=== PATIENT | female | born 1995 | race Caucasian/White ===

== ENCOUNTER 2017-05-02 23:18 | Emergency (ER) | payer OTHER ==
[~2017-05-02] VITALS: Ht 167.6 cm; Wt 65.5 kg
[2017-05-02 23:25] VITALS: TEMP 36.6; Ht 167.6 cm; Wt 65.5 kg
[2017-05-02] MEDS ORDERED: SODIUM CHLORIDE 0.9% 1000ML 1,000 ML IV STA (23:56)
[2017-05-02] MEDS ORDERED: DiphenhydrAMINE HCL 50 MG/ML VIAL IV STA (23:56)
[2017-05-02] MEDS ORDERED: PROCHLORPERAZINE 5 MG/ML 2 ML VIAL IV STA (23:56)
[2017-05-02] MEDS ORDERED: KETOROLAC TROMETHAMINE 30 MG/ML VIAL IV STA (23:56)
[2017-05-03] MEDS ORDERED: NORGTAB36 PO (00:03)
--- NOTE | 2017-05-03 02:24 | EMERGENCY ROOM VISIT NOTE ---
History Report prepared by Shefali: Radha Cueva Under the Supervision of: Dr. Pavithra Verduzco D.O. First contact with patient: 23:38 Chief Complaint: HEADACHE Stated Complaint: MIGRAINE History of Present Illness The patient is a 21 year old female who presents to the Emergency Room with complaints of persistent migraine aura starting 8 hours ago. The patient has a history of migraines with aura. She is concerned because her aura today is different from her usual aura. Her aura today is also lasting longer than usual and she has not had any headache yet. When her aura begins, she usually takes Excedrin and sleeps for 3-4 hours. She has tried taking Excedrin today to no relief. She has some light sensitivity. She notes that she has increased stress and decreased sleep since starting school. Weather pressure changes can also affect her migraines. She started having some congestion yesterday with a productive cough. She denies any neck pain, back pain, nausea, numbness, or dizziness. She has been drinking fluids and eating normally. She denies any chance of . She has a strong family history of migraines her in father and siblings. She denies any head injury. Source of History: patient Onset: 8 hours ago Position: other (global) Quality: other (migraine aura) Timing: other (persistent) Associated Symptoms: No neck pain, No nausea, No back pain, No numbness Note: Pt reports light sensitivity. Pt denies dizziness. Review of Systems See HPI for pertinent positives & negatives. A total of 10 systems reviewed and were otherwise negative. Past Medical & Surgical Medical Problems: (1) Migraine Family History Migraine Social History Smoking Status: Never Smoker Occupation Status: [employer] student Current/Historical Medications Scheduled Norgestimate-Ethinyl Estradiol (Ortho Tri-Cyclen), 1 TAB PO DAILY Allergies Coded Allergies: Cefprozil (Verified Allergy, Unknown, hives, 05/02/17) Physical Exam Vital Signs Date Time Temp Pulse Resp B/P (MAP) Pulse Ox O2 Delivery O2 Flow Rate FiO2 05/03/17 02:59 80 18 93/65 98 05/03/17 00:36 76 18 131/64 99 Room Air 05/02/17 23:25 36.6 92 18 121/62 98 Room Air Physical Exam GENERAL: alert, well appearing, well nourished, no distress, non-toxic EYE EXAM: normal conjunctiva, PERRL and EOM's grossly intact. Funduscopic exam shows normal appearing vessels, unable to see entire optical disc. No evidence of papilledema. OROPHARYNX: no exudate, no erythema, lips, buccal mucosa, and tongue normal and mucous membranes are moist NECK: supple, no nuchal rigidity, no adenopathy, non-tender LUNGS: Clear to auscultation. Normal chest wall mechanics HEART: no murmurs, S1 normal and S2 normal ABDOMEN: abdomen soft, non-tender, normo-active bowel sounds, no masses, no rebound or guarding. BACK: Back is symmetrical on inspection and there is no deformity, no midline tenderness, no CVA tenderness. SKIN: no rashes and no bruising UPPER EXTREMITIES: upper extremities are grossly normal. LOWER EXTREMITIES: No pitting edema. NEURO EXAM: Normal sensorium, cranial nerves II-XII grossly intact, normal speech, no gross weakness of arms, no gross weakness of legs. Medical Decision & Procedures ER Provider Diagnostic Interpretation: Radiology results have been interpreted by the [facility] radiologist and reviewed by me. CT Head: No acute intracranial abnormality. Mild mucosal thickening in the left sphenoid sinus. Laboratory Results Test 05/03/17 02:15 Urine Color YELLOW Urine Appearance CLEAR (CLEAR) Urine pH 6.0 (4.5-7.5) Urine Specific [place] 1.014 (1.000-1.030) Urine Protein NEG (NEG) Urine Glucose (UA) NEG (NEG) Urine Ketones NEG (NEG) Urine Occult Blood NEG (NEG) Urine Nitrite NEG (NEG) Urine Bilirubin NEG (NEG) Urine Urobilinogen NEG (NEG) Urine Leukocyte Esterase NEG (NEG) Urine Test NEG (NEG) Laboratory results per my review. Medications Administered Medications (Trade) Dose Ordered Sig/Alfonzo Route Start Time Stop Time Status Last Admin Dose Admin Sodium Chloride 1,000 ml @ 999 mls/hr Q1H1M STAT IV 05/02/17 23:56 05/03/17 00:56 DC 05/02/17 23:56 999 MLS/HR Prochlorperazine Edisylate (Compazine Inj) 5 mg NOW STAT IV 05/02/17 23:56 05/02/17 23:59 DC 05/03/17 00:49 5 MG Diphenhydramine HCl (Benadryl Inj) 12.5 mg NOW STAT IV 05/02/17 23:56 05/02/17 23:59 DC 05/03/17 00:47 12.5 MG Ketorolac Tromethamine (Toradol Inj) 30 mg NOW STAT IV 05/02/17 23:56 05/02/17 23:59 DC 05/03/17 00:49 30 MG ED Course 2343: The patient was evaluated in room B12B. A complete history and physical exam was performed. 2356: Toradol Inj 30 mg IV, Benadryl Inj 12.5 mg IV, Compazine Inj 5 mg IV, NSS 1000 ml @ 999 mls/hr IV. 0142: I reevaluated the patient. She still has vision changes, but they are slightly improved. 0230: I reevaluated the patient. Patient still with vision changes she describes as atypical aura. No otherwise worsening vision changes or evolution of headache. discussed the findings and the treatment plan with the patient. She verbalizes agreement and understanding. She was discharged home. Medical Decision Differential diagnosis: Etiologies such as migraine headache, meningitis, sinusitis, CO exposure, ICH, SAH, infection, tumor, headache, sinus thrombosis, arterial dissection, as well as others were entertained. Pt offered additional medications/observation here and she requested to be discharged home. Discussed with pt close f/u, sx to watch/return for. I feel more likely atypical aura in pt with hx of aura and migraines. Unclear if related to recent changes in sleep, weather, or stress. CT head reassuring. Pt states she typically wears contacts and doesn't have them in and otherwise refused to do visual acuity testing. No gross abnormalities noted on funduscopic exam. Doubt cerebellar etiology, doubt cva, cvs thrombus, ICH, meningitis. Pt otherwise well appearing and VS stable. Medication Reconcilliation Current Medication List: was personally reviewed by me Blood Pressure Screening Patient's blood pressure: Elevated blood pressure Blood pressure disposition: Elevated BP felt to be situational Impression Primary Impression: Aura Scribe Attestation The scribe's documentation has been prepared under my direction and personally reviewed by me in its entirety. I confirm that the note above accurately reflects all work, treatment, procedures, and medical decision making performed by me. Departure Information Dispostion Home / Self-Care Referrals No Doctor, Assigned (PCP) Patient Instructions [facility] Additional Instructions Please rest and drink plenty of fluids. If you have any persistent aura, develop and atypical headache, vomiting, fevers, notice any other vision changes not typical of your aura and migraine history, develop dizziness, numbness or tingling, or you've any other new concerns, please return the emergency room.
[2017-05-03 02:59] VITALS: BP 93/65; PULSE 80; O2SAT 98
--- NOTE | 2017-05-03 06:34 | DIAGNOSTIC IMAGING REPORT ---
HEAD CT NONCONTRAST CT DOSE: 537.48 mGy.cm HISTORY: atypical headache TECHNIQUE: Multiaxial CT images of the head were performed without the use of intravenous contrast. Automated exposure control was utilized for this study. A dose lowering technique was utilized adhering to the principles of ALARA. Comparison: None. Findings: Mild mucosal thickening within the left sphenoid sinus. The mastoid air cells are clear. The calvarium and skull base are intact. The ventricles and sulci are within normal limits. There is no mass, hematoma, midline shift, or acute infarct. Impression: No acute intracranial abnormality. Electronically signed by: Martell Espinoza M.D. 05/03/2017 6:32 AM Dictated Date/Time: 05/03/2017 6:31 AM
== END 2017-05-03 03:00 | disposition home or self-care (01) ==
LOC: C.EDB 23:20
DX: G43.109 Migraine with aura, not intractable, without status migrainosus (principal); Z79.3 Long term (current) use of hormonal contraceptives; Z82.0 Family history of epilepsy and other diseases of the nervous system